=== PATIENT | male | born 1965 | race Caucasian/White ===

== ENCOUNTER 2016-09-11 05:05 | Inpatient (IN) | payer OTHER ==
[~2016-09-11] VITALS: Ht 175.3 cm; Wt 115.7 kg
[~2016-09-11 05:05] MED LIST: BYSTOLIC20 M1 PO; EDARBYCLOR 40-1 EACH PO; LEVOXYL100 MCG PO; LEVOXYL150 MCG PO; SUBOXONE 8 MG-1 EACH PO
--- NOTE | 2016-09-11 12:40 | Admission Core Measures ---
Admission Meds I reviewed the following Meds: Current Medications Sig/Sloane Start time Last Medication Dose Stop Time Status Admin Acetaminophen 975 MG ONCE 09/11 NR (Tylenol) 09/11 2358 Cefazolin Sodium 2,000 MG ONCE 09/11 NR (Kefzol-Ancef Inj) 09/11 2358 Chlorthalidone 12.5 MG DAILY 09/12 1000 AC (Hygroton) Levothyroxine Sodium 0.2 MG .[QOD] 09/11 1244 UNVr (Synthroid) Levothyroxine Sodium 0.3 MG .[EVERY OTHER ] 09/11 124 UNVr (Synthroid) Nebivolol 20 MG DAILY 09/12 1000 UNVr (Bystolic) Oxycodone HCl 10 MG ONCE 09/11 NR (Roxicodone) 09/11 2358 Acute Coronary Syndrome Inclusion Criteria ACS Diagnosis No Inpatient Core Measures LDL Reminder: If No, please order W/I first 24hr of stay Congestive Heart Failure Inclusion Criteria CHF Diagnosis No Cerebrovascular accident Inclusion Criteria CVA/TIA Diagnosis No Inpatient Core Measures Bedside Swallow Eval Reminder: If BSE failed, place ST order Antithrombotic Reminder: Order Antithrombotic Medication by end of day 2 Antithrombotic Reminder: Document Reason Antithrombotic Not ordered by end of day 2 AFIB/Flutter Reminder: If Present, add to problem list AFIB/Flutter Reminder: Order Anticoag Medication for pts with AFIB/Flutter Atherosclerosis Reminder: If Present, add to problem list LDL Reminder: If No, please order W/I first 24hr of stay PT Order Reminder: If No, please order Venous thromboembolism Inpatient Core Measures VTE Risk Factors: Age > 40, Obesity, Surgery VTE Prophylaxis Ordered Inpt [facility] No [facility] VTE prophylaxis d/t No contraindications No VTE Pharm Prophylaxis d/t No contraindications Inclusion Criteria - Per Current guidelines, there needs to be overlap - treatment for the first 5 days of Warfarin therapy. - Parenteral Anticoagulation (IV or SC) needs to be - given along with Warfarin therapy. VTE Diagnosis No VTE Type NONE VTE Confirmed by (Test) NONE Problem List As ranked by this Provider includes Assessment & Plan 1. S/P total knee arthroplasty HOME MEDS Home Med List Azilsartan Med/Chlorthalidone (Edarbyclor 40-12.5 MG Tablet) 40 MG-12.5 MG TABLET 1 TAB PO DAILY HTN (Reported) Buprenorphine HCl/Naloxone HCl (Suboxone 8 MG-2 MG Sl Film) 8 MG-2 MG FILM 2 TAB PO DAILY NARCOTIC ABUSE (Reported) Levothyroxine Sodium (Levoxyl) 150 MCG TABLET 2 TAB PO EVERY OTHER HYPOTHYROID (Reported) Levothyroxine Sodium (Levoxyl) 100 MCG TABLET 2 TAB PO QOD HYPOTHYROID ( Reported) Nebivolol HCl (Bystolic) 20 MG TABLET 1 TAB PO DAILY HTN (Reported)
--- NOTE | 2016-09-11 12:45 | Discharge Summary ---
Visit Information Visit Dates Admission Date: 09/11/16 Discharge Date: 09/13/16 Hospital Course Course Attending Physician: MARKUS FREITAS MD Primary Care Physician: JÚNIOR SHERMAN MD Hospital Course: Patient admitted to floor following procedure below. Patient ambulated with PT upon arrival to the floor. Patient continued to progress well. Upon discharge patient is afebrile, tolerating diet, pain controlled, ambulating well with rolling walker and PT. Complications: None Allergies: Coded Allergies: No Known Allergies (09/07/16) Significant Procedures: 09/11/16 right total knee arthroplasty Disposition Summary Disposition Principal Diagnosis: Right knee primary OA/DJD Additional Diagnosis: None Discharge Disposition: home health services Discharge Instructions General Discharge Information Code Status: Full Code Patient's Diet: Resume normal diet Patient's Activity: Weightbearing as Tolerated Daily physical therapy Follow-Up Instructions/Appts: Call office to schedule/confirm appointment Medications at Discharge Discharge Medications: Stop taking the following medications: Buprenorphine HCl/Naloxone HCl (Suboxone 8 MG-2 MG Sl Film) 8 MG-2 MG FILM ORAL DAILY Continue taking these medications: Levothyroxine Sodium (Levoxyl) 150 MCG TABLET 2 Tablet ORAL EVERY OTHER Comments: Last Taken:NOT GIVEN IN HOSPITAL Time: Levothyroxine Sodium (Levoxyl) 100 MCG TABLET 2 Tablet ORAL QOD Comments: Last Taken:09/12/16 Time:0600 Nebivolol HCl (Bystolic) 20 MG TABLET 1 Tablet ORAL DAILY Comments: Last Taken:09/12/16 Time:11 AM Azilsartan Med/Chlorthalidone (Edarbyclor 40-12.5 MG Tablet) 40 MG-12.5 MG TABLET 1 Tablet ORAL DAILY Comments: Last Taken:09/12/16 Time:11 AM Start taking the following new medications: Hydromorphone HCl (Dilaudid) 4 MG TABLET 1-2 Tablet ORAL Q4-6H as needed for PAIN Qty = 36 No Refills Comments: Last Taken:09/12/16 Time:11 AM Morphine Sulfate (Morphine Sulfate ER) 30 MG TABLET.ER 1 Tablet ORAL 2 x Daily as needed Qty = 6 No Refills Comments: Last Taken:NOT GIVEN IN HOSPITAL Time: Docusate Sodium (Colace) 100 MG CAPSULE 1 Capsule ORAL TWICE DAILY as needed for CONSTIPATION Qty = 30 No Refills Comments: Last Taken:09/12/16 Time:11 AM Polyethylene Glycol 3350 (Miralax) 17 GRAM POWD.PACK 1 Packet ORAL DAILY as needed for CONSTIPATION Qty = 14 No Refills Instructions: dissolve in water Comments: Last Taken:09/12/16 Time:11 AM Aspirin (Aspirin*) 325 MG TABLET 1 Tablet ORAL TWICE DAILY Qty = 60 No Refills Comments: Last Taken:09/12/16 Time:11 AM Copies To: WHIT GARDUNO,JÚNIOR Nicole
[2016-09-11] MEDS ORDERED: DILAUDID4 M1 PO (12:53)
[2016-09-11] MEDS ORDERED: ASPIRIN325 M2 PO (12:53)
[2016-09-11] MEDS ORDERED: MORPHINE SULFAT30 M3 PO (12:53)
[2016-09-11] MEDS ORDERED: MIRALAX17 G1 PO (12:53)
[2016-09-11] MEDS ORDERED: COLACE100 M1 PO (12:53)
--- NOTE | 2016-09-11 13:04 | Patient Discharge Instructions ---
Discharge Instructions General Discharge Information You were seen/treated for: Right knee OA/DJD You had these procedures: 09/11/2016 right total knee arthroplasty Watch for these problems: Redness, swelling, fever, signs of infection. Uncontrolled pain, Excessive bleeding. Decreased range of motion or unable to bear weight. Chest pain, shortness of breath. Call Surgeon to remove: [place] (14 DAYS) Do not soak the wound: Yes No bath, but you may shower: Yes Other wound care: Daily dry dressing changes starting postop day #2 Special Instructions: Follow-up with lead based paint technician when discharged for extractions and when to resume Suboxone. Diet Continue normal diet: Yes Activity Activity Self Limited: Yes Activity Limited to: Weight bear as tolerated Additional ACTIVITY Info: Daily physical therapy Acute Coronary Syndrome Inclusion Criteria At DC or during hospital stay patient has or had the following: ACS DIAGNOSIS No Discharge Core Measures Meds if any: Prescribed or Continued at Discharge Meds if any: NOT Prescribed or Continued at Discharge Congestive Heart Failure Inclusion Criteria At DC or during hospital stay patient has or had the following: CHF DIAGNOSIS No Discharge Core Measures Meds if any: Prescribed or Continued at Discharge Meds if any: NOT Prescribed or Continued at Discharge Cerebrovascular accident Inclusion Criteria At DC or during hospital stay patient has or had the following: CVA/TIA Diagnosis No Discharge Core Measures Meds if any: Prescribed or Continued at Discharge Meds if any: NOT Prescribed or Continued at Discharge Venous thromboembolism Inclusion Criteria VTE Diagnosis No VTE Type NONE VTE Confirmed by (Test) NONE Discharge Core Measures - Per Current guidelines, there needs to be overlap - treatment for the first 5 days of Warfarin therapy. - If discharged on Warfarin prior to 5 days of - overlap therapy, the patient will need to be - assessed for post discharge needs including - *Post discharge parental anticoagulation - *Warfarin and/or parental anticoagulation education - *Follow up date to check INR post discharge At least 5 days overlap therapy as Inpatient No Meds if any: Prescribed or Continued at Discharge Note: Overlap Therapy is Warfarin and Anticoagulant Meds if any: NOT Prescribed or Continued at Discharge
--- NOTE | 2016-09-11 15:55 | Operative Report ---
Operative/Inv Procedure Report Surgery Date: 09/11/16 Name of Procedure: 1. Right total knee replacement 2. Left knee cortisone injection Pre-Operative Diagnosis: Primary Bilateral knee DJD Post-Operative Diagnosis: Same Estimated Blood Loss: 50ml to 100ml Surgeon/Incident Response Engineer: ZENA GARDUNO,MARKUS Sanchez Anesthesia: block Operative/Procedure Note Note: Description of Procedure: The patient was taken to the operating room and positively identified. After induction of spinal anesthesia and administration of appropriate pre-operative antibiotics, the patient was positioned supine on the operating room table and all bony prominences were well padded. The left knee was prepped sterilely and injected with a mixture of 2 mL of Depo- Medrol and 6 mL of half percent Marcaine. A Band-Aid was placed over the injection site. Attention was then turned to the right lower extremity. A well-padded pneumatic tourniquet was placed on the right upper thigh. After performing a surgical timeout, the right lower extremity was prepped and draped in the usual sterile fashion. After exsanguination with Esmarch the tourniquet was inflated to 250mm of mercury. A standard medial parapatellar approach was made to the knee. This was carried down through skin and subcutaneous tissue to the level of the fascia. Meticulous hemostasis was maintained with Bovie electrocautery. The extensor mechanism and patellar retinaculum were opened sharply and the patella was everted. The infrapatellar fat was resected in order to improve exposure. Osteophytes were trimmed from the patella and femoral condyles and the patella was re-everted and tucked laterally. A medial release was performed and the cruciate ligaments were resected. The tibia was then subluxed anteriorly. Utilizing the appropriate extra-medullary guide, the proximal tibia was trimmed perpendicular to the long axis of the tibial shaft. Attention was then turned to the femur. After opening the medullary canal, the distal femoral cut was made in 6 degrees of valgus utilizing the appropriate intra-medullary guide. The extension gap was checked and found to be appropriate. The femur was then sized and the remainder of the femoral cuts were made with a size 4 4-in-1 femoral cutting guide. The flexion gap was checked and found to be symmetric and appropriate. The knee was then trialed with a size 4 femoral component, a size 4 tibial component and a size 13 mm polyethylene insert. The patella was trimmed to accept an A 35 patella. This yielded excellent range of motion, stability and patellar tracking. All trial components were removed and the knee was copiously irrigated with sterile saline. All components were cemented into place with Crowheart Simplex cement. All the components were of the [employer] Triathlon knee system of the above stated sizes. The knee was again irrigated after cementation. The extensor mechanism and patellar retinaculum were repaired using interrupted #1 vicryl suture. The skin was re-approximated with 2-0 vicryl and closed with lisa. A sterile dressing was applied, the tourniquet was deflated, the patient was awakened and taken to the recovery room in satisfactory condition.
[2016-09-11 17:29] VITALS: BP 136/68
--- NOTE | 2016-09-11 17:39 | NUR ---
PT UP TO FLOOR AT 1640. PT A/O X3, PT ON RA, VSS. PT STATES PAIN IN R KNEE 02/12. SX DRSG TO RLE C/D/I. R ADDUCTOR ON-Q PUMP IN PLACE AND INTACT AT 12NL/HR. DURACOLD TO R KNEE. #20 RFA PATENT WITH NS INFUSING AT 75ML/HR. HEMOVAC PRESENT TO R KNEE SITE WITH BLOODY DRAINAGE. ALPS PLACED. CALL TIDWELL USE INSTRUCTED . WILL MONITOR
[2016-09-11 18:01] VITALS: BP 164/92
[2016-09-11 20:00] VITALS: BP 158/90
--- NOTE | 2016-09-11 21:57 | PN- Orthopedic ---
Subjective Subjective: poc s/p right tka no complaints at this time denies cp, sob, no n+v Objective Vital Signs and I&Os Vital Signs Date Time Temp Pulse Resp B/P Pulse O2 O2 Flow FiO2 Ox Delivery Rate 09/11 1999 98.0 73 20 158/90 95 Room Air 09/11 1801 97.9 65 20 164/92 96 Room Air 09/11 1729 97.5 68 18 136/68 96 Room Air Physical Exam: cv: rrr lungs: clear abd: soft, +bs ext: bialt le distal cms intact drsg dry onq in place hemovac drain with sanguimous drainage Assessment/Plan Assessment/Plan ortho stable plan titrate pain meds asa for dvt prophylaxis oob wtih pt in am wbat home d/c planning Core Measures/Miscellaneous Venous Thromboembolism VTE Risk Factors: Age > 40, Surgery VTE Contraindications: No Contraindications VTE Prophylaxis Ordered Inpt: Mech & Pharm VTE Diagnosis: No VTE Type: NONE VTE Confirmed by (Test): NONE Beta Alexi Is Beta Alexi a Home Med? Yes Antibiotics Is Patient on Antibiotics? Yes If Yes: prophylaxis
[2016-09-11 22:00] VITALS: BP 160/90
[2016-09-12 02:08] VITALS: BP 148/70
[2016-09-12 06:30] VITALS: BP 146/70
--- NOTE | 2016-09-12 07:44 | PN- Orthopedic ---
Subjective Subjective: NAEO. Patient without new c/o. State he has pain but that its controlled on the current pain regimen. Ambulated with assist yesterday but did not work with PT. Tolerating diet without n/v. +flatus, no BM. Denies CP/SOB. Objective Vital Signs and I&Os Vital Signs Date Time Temp Pulse Resp B/P Pulse O2 O2 Flow FiO2 Ox Delivery Rate 09/12 629 98.1 73 20 146/70 95 Room Air 09/12 0208 98.2 74 20 148/70 95 Room Air 09/11 2200 98.2 69 20 160/90 96 Room Air 09/11 2000 98.0 73 20 158/90 95 Room Air 09/11 1801 97.9 65 20 164/92 96 Room Air 09/11 1729 97.5 68 18 136/68 96 Room Air Intake & Output 09/12 0800 / 0000 09/11 1600 09/11 0800 09/11 0000 09/10 1600 Intake Total 770 2025 Output Total 850 800 Balance -80 1225 Intake, IV 650 525 Intake, Oral 120 1500 Output, 50 100 Drainage Output, Urine 800 700 Patient 255 lb Weight Physical Exam: General: NAD, comfortable, A&Ox3 Chest: CTAB. RRR. Abdomen: soft, NT, ND. Ext: Right knee dressing c/d/i, hemovac in place with small amount of sanguinous drainage. No calve swelling/TTP, neurovascularly intact bilateral lower extremities Current Medications: Current Medications Sig/Sloane Start time Last Medication Dose Route Stop Time Status Admin Acetaminophen 650 MG Q4P PRN 09/11 1700 AC PO Acetaminophen 975 MG ONCE 09/11 0000 DC PO 09/11 235 Aspirin 325 MG BID 09/11 2200 AC 09/11 PO 211 Cefazolin Sodium 2 GM Q8H 09/11 2100 DC 09/12 N/A 1 UNIT IV 09/12 0529 0513 Cefazolin Sodium 2 GM IQ8 09/11 1600 DC N/A 1 UNIT IV 09/12 0029 Cefazolin Sodium 2,000 MG ONCE 09/11 0000 DC IV 09/11 235 Chlorthalidone 12.5 MG DAILY 09/12 1000 AC PO Docusate Sodium 100 MG DAILY 09/12 1000 AC PO Fentanyl Citrate 100 MCG .STK-MED ONE 09/11 1206 DC IM 09/11 1207 Hydromorphone HCl 2 MG Q4P PRN 09/11 1700 AC PO Hydromorphone HCl 4 MG Q4P PRN 09/11 1700 AC 09/12 PO 0607 Hydromorphone HCl 1 MG Q2-3 HRS NEEDED.. 09/11 1700 AC IV Ketorolac 30 MG Q6P PRN 09/11 1700 AC 09/11 Tromethamine IM 09/14 1700 1924 Levothyroxine Sodium 0.3 MG Q48@09/13 0700 AC PO Levothyroxine Sodium 0.2 MG Q48@0709/12 0700 AC 09/12 PO 0607 Losartan Potassium 25 MG DAILY 09/12 1000 AC PO Midazolam HCl 4 MG .STK-MED ONE 09/11 1206 DC IM 09/11 1207 Nebivolol 20 MG DAILY 09/12 1000 AC PO Ondansetron HCl 4 MG Q6P PRN 09/11 1700 AC IV Oxycodone HCl 10 MG ONCE 09/11 0000 DC PO 09/11 2359 Patient Medication 1 UNIT 1000 09/12 1000 Teaching ED 09/12 1001 Patient Medication 1 UNIT 1000 09/12 1000 [facility] ED 09/12 1001 Polyethylene Glycol 17 GM DAILY 09/12 1000 AC PO Ropivacaine 500 ML ONCE ONE 09/11 1300 AC 09/11 ON-Q Ball 1 BAG INJ 09/13 0639 1848 Sodium Chloride 1,000 ML .[id number] 09/11 1700 DC 09/12 IV 0514 Tranexamic Acid 2,000 MG .STK-MED ONE 09/11 1205 DC IV 09/11 1206 Assessment/Plan Assessment/Plan 51yo M POD#1 s/p right TKA. AVSS, patient stable. - dc ivf - no more abx - pain control - f/u with attending when to restart suboxone - OOB and ambulate with PT, WBAT - I/O's - f/u a.m. labs - hemovac dc'd beside - ALPS/TEDS - DC planning for home PT when cleared by PT - Will d/w attending Core Measures/Miscellaneous Venous Thromboembolism VTE Risk Factors: Age > 40, Surgery VTE Contraindications: No Contraindications VTE Prophylaxis Ordered Inpt: Mech & Pharm VTE Diagnosis: No VTE Type: NONE VTE Confirmed by (Test): NONE Beta Alexi Is Beta Alexi a Home Med? Yes Antibiotics Is Patient on Antibiotics? No If Yes: prophylaxis
[2016-09-12 08:52] VITALS: BP 140/72
[2016-09-12 09:15] LABS: ABSOLUTE BASOPHIL COUNT 0 /CUMM (0.0-0.2); ABSOLUTE EOSINOPHIL COUNT 0 /CUMM (0.0-0.7); ABSOLUTE GRANULOCYTE CT 10.9 /CUMM (1.4-6.5); ABSOLUTE LYMPH COUNT 0.9 /CUMM (1.2-3.4); ABSOLUTE MONOCYTE COUNT 0.8 /CUMM (0.10-0.60); BASOPHIL % 0.1 % (0.0-2.0); EOSINOPHIL % 0.2 % (0-5); MEAN CORPUSCULAR HGB 28.4 PG (27.0-31.0); MEAN CORPUSCULAR HGB CONC 33.8 G/DL (33.0-37.0); MEAN PLATELET VOLUME 8.6 FL (7.4-10.4); RBC DISTRIBUTION WIDTH 13.8 % (11.5-14.5); RED BLOOD CELL CT 4.16 /CUMM (4.70-6.10); WHITE BLOOD CELL COUNT 12.7 /CUMM (4.8-10.8)
[2016-09-12 09:55] LABS: PLATELET COUNT 307 /CUMM (130-400)
[2016-09-12 09:56] LABS: GRANULOCYTE % 86.4 % (42.2-75.2)
--- NOTE | 2016-09-12 14:00 | NUR ---
PT'S RIGHT THIGH DSG CONTAINS MODERATE AMOUNT OF BLOODY DRAINAGE NEAR OLD DIANE SITE, BLOOD SOAKED THREW RILEY COAT AND SHEET, DSG REINFORCED, GEORGINA JACOBO NOTIFIED AND AT BEDSIDE TO ASSESS PT, TOP PART OF DSG CHANGED BY PA, CONTINUE TO MONITOR
[2016-09-12 14:31] VITALS: BP 130/80
[2016-09-12 19:30] VITALS: BP 142/58
[2016-09-12 23:00] VITALS: BP 172/92
--- NOTE | 2016-09-13 07:00 | PN- Orthopedic ---
Subjective Subjective: POD#2 S/P RIGHT TKA 8/10 PAIN LAST EVENING INCREASED BP NOW, PROBABLY RELATED TO PAIN H/O CHRONIC PAIN ON SUBOXONE DENIES CP, SOB, NO N+V DOING WELL WITH PT Objective Vital Signs and I&Os Vital Signs Date Time Temp Pulse Resp B/P Pulse O2 O2 Flow FiO2 Ox Delivery Rate 09/12 2300 98.8 79 18 172/92 96 Room Air 09/12 1930 98.7 87 20 142/58 96 Room Air 09/12 1431 98.7 82 20 130/80 96 09/12 1049 84 140/70 09/12 1048 84 140/70 09/12 0852 98.2 80 20 140/72 96 Intake & Output 09/13 0809/13 0000 09/12 1600 09/12 0800 09/12 0000 09/11 1600 Intake Total 635 635 3480 770 2025 Output Total 850 800 Balance 408 044 3049 -80 1225 Intake, IV 650 525 Intake, Oral 093 524 0445 120 1500 Output, 50 100 Drainage Output, Urine 800 700 Patient 255 lb Weight Physical Exam: CV: RRR LUNGS: CLEAR ABD: SOFT, +BS EXT: DRSG CHANGED, WOUND C/D/I NO CALF TENDERNESS BILAT DISTAL CMS INTACT BILAT Assessment/Plan Assessment/Plan ORTHO STABLE PLAN TITRATE PAIN MEDS ASA FOR DVT PROPHYLAXIS HOME D/C PLANNING Core Measures/Miscellaneous Venous Thromboembolism VTE Risk Factors: Age > 40, Surgery VTE Contraindications: No Contraindications VTE Prophylaxis Ordered Inpt: Mech & Pharm VTE Diagnosis: No VTE Type: NONE VTE Confirmed by (Test): NONE Beta Alexi Is Beta Alexi a Home Med? Yes Antibiotics Is Patient on Antibiotics? No If Yes: prophylaxis
[2016-09-13 07:44] VITALS: BP 162/83
[2016-09-13 08:42] VITALS: BP 160/70
--- NOTE | 2016-09-13 14:00 | NUR ---
PT'S RIGHT THIGH DSG AT OLD DIANE SITE DRAINING MODERATE AMOUNT OF BLOODY DRAINAGE, DSG CHANGED. GEORGINA GAMBOA NOTIFIED, PER PA TO BE EXPECTED FOR A COUPLE OF DAYS, PT INFORMED OF THIS. OK FOR DISCHARGE PER PA, DSG SUPPLIES SENT HOME WITH PT, PT DUE TO HAVE [facility] FOLLOW-UP TOMMOROW.
== END 2016-09-13 14:43 | disposition home health service (06) | DRG 470 ==
LOC: ENRESERVTM → ENRESERVDT → SDA 05:05 → EDPENDDISTM 05:05 → 2NA 05:05 → EDPENDDISDT 05:05 → ENPENDDIS 05:05 → 2NA 16:58
PROVIDERS: Physician Assistant Surgical; ADMIT Orthopaedic Surgery
PROC: 0SRC0J9 Replacement of Right Knee Joint with Synthetic Substitute, Cemented, Open Approach (ICD-10-PCS; principal; 2016-09-11)
PROC: 3E0U33Z Introduction of Anti-inflammatory into Joints, Percutaneous Approach (ICD-10-PCS; principal; 2016-09-11)
PROC: 3E0U3BZ Introduction of Anesthetic Agent into Joints, Percutaneous Approach (ICD-10-PCS; principal; 2016-09-11)
DX: M17.0 Bilateral primary osteoarthritis of knee (principal); I10 Essential (primary) hypertension; E66.9 Obesity, unspecified; Z68.37 Body mass index [BMI] 37.0-37.9, adult
CPT/HCPCS: 2NASP; 82436; 88305; 97116-GO; 97161-GP; 97530-GO; C1713; J0690; J1030; J1885; J2405; J2795; J3370